=== PATIENT | female | born 1970 | race Caucasian/White ===

== ENCOUNTER 2023-12-20 13:02 | Emergency (ER) | payer BC, SELFPAY ==
[2023-12-20 13:06] VITALS: BP 165/96
--- NOTE | 2023-12-20 13:35 | ED.GENMED ---
History of Present Illness
<Rosy Green PA-C - Last Filed: 12/20/23 18:14>
General
Chief Complaint: Abdominal Symptoms
Source: patient
Exam Limitations: none
Time Seen by Provider: 12/20/23 13:29
Nursing documentation reviewed up to this point in time: agreed with
History of Present Illness
History of Present Illness:
Patient is a 53-year-old female presenting to the emergency department for evaluation of abdominal pain. Patient reports yesterday evening prior to bed feeling a general feeling of bloating. This was shortly followed by pain in her left lower
abdomen. This morning pain was persistent and worse with movement. At times last night felt the pain was so severe it was hard to get a deep breath. Patient did feel some urinary frequency this morning and associated dysuria. Patient denies any
associated fever, chills, nausea, vomiting, diarrhea, constipation, or hematuria. No history of prior abdominal surgeries.
Patient was seen in urgent care this morning for symptoms where they performed blood work and did a urinalysis. Patient was referred to the emergency department for further evaluation.
No history of kidney stones. She does however note a history of known uterine fibroids for which patient states pain seems very different.
Review of Systems
<Rosy Green PA-C - Last Filed: 12/20/23 18:14>
Review of Systems
Allergies reviewed?: Yes
All Other Systems: ROS reviewed and negative except as documented in HPI and ROS
Phy Exam
<Rosy Green PA-C - Last Filed: 12/20/23 18:14>
Physical Exam
Physical Exam:
Vitals: Hypertensive, otherwise vital signs stable. Afebrile
General: Patient is well appearing, no acute distress. Nontoxic-appearing
Skin: Warm and dry, no rashes or lesions
Head: Normocephalic, atraumatic
Eyes: Sclera nonicteric. EOMs intact. No nystagmus.
Throat: Protecting airway
Neck: Normal ROM, no cervical spine tenderness, no meningismus
Cardiac: Regular rate and rhythm, no murmurs.
Pulm: Normal respiratory effort, no wheezes, rales, rhonchi heard on exam.
Abdomen: Abdomen soft. Moderate abdominal tenderness in left lower quadrant without rebound tenderness or guarding. No CVA tenderness
Extremities: No evidence of cyanosis or edema. Great distal pulses
Neuro: Grossly intact
Psychiatric: Normal affect.
Course
<Rosy Green PA-C - Last Filed: 12/20/23 18:14>
Orders/Labs/Results
Orders:
Orders
12/20/23 14:00
CT Abd/pelvis W Iv Cont Urgent
Comment:
Reason For Exam: LLQ pain, bloating
0.9% Sodium Chloride 1000 ml [Nss] 1,000 ml IV BOLUS
Test Result ONCE
12/20/23 14:13
HCG, Urine Qualitative Screen Urgent
Date Specimen was Collected: 12/20/23
Time Specimen was Collected: 14:05
Urinalysis Reflex To Culture Urgent
Date Specimen was Collected: 12/20/23
Time Specimen was Collected: 14:05
Urine Microscopic Reflex Cult Urgent
12/20/23 16:50
Amoxicillin 875 mg/Clav 125 mg [Augmentin 875 mg/125 mg] 1 tablet PO NOW STA
Abnormal Lab Results
12/20/23
14:13
Leukocyte Esterase Rfl Trace A
(Negative)
Vital Signs
Initial and Last Documented VS:
Initial Vital Signs
Temp Pulse Resp BP Pulse Ox
98.5 F 93 16 165/96 100
12/20/23 13:06 12/20/23 13:06 12/20/23 13:06 12/20/23 13:06 12/20/23 13:06
Last Documented Vital Signs
Temp Pulse Resp BP Pulse Ox
98.5 F 96 16 146/78 94
12/20/23 13:06 12/20/23 17:00 12/20/23 17:00 12/20/23 17:00 12/20/23 17:00
<Beatrice Flynn MD - Last Filed: 12/20/23 16:51>
Orders/Labs/Results
Orders:
Orders
12/20/23 14:00
CT Abd/pelvis W Iv Cont Urgent
Comment:
Reason For Exam: LLQ pain, bloating
0.9% Sodium Chloride 1000 ml [Nss] 1,000 ml IV BOLUS
Test Result ONCE
12/20/23 14:13
HCG, Urine Qualitative Screen Urgent
Date Specimen was Collected: 12/20/23
Time Specimen was Collected: 14:05
Urinalysis Reflex To Culture Urgent
Date Specimen was Collected: 12/20/23
Time Specimen was Collected: 14:05
Urine Microscopic Reflex Cult Urgent
12/20/23 16:50
Amoxicillin 875 mg/Clav 125 mg [Augmentin 875 mg/125 mg] 1 tablet PO NOW STA
Abnormal Lab Results
12/20/23
14:13
Leukocyte Esterase Rfl Trace A
(Negative)
Vital Signs
Initial and Last Documented VS:
Initial Vital Signs
Temp Pulse Resp BP Pulse Ox
98.5 F 93 16 165/96 100
12/20/23 13:06 12/20/23 13:06 12/20/23 13:06 12/20/23 13:06 12/20/23 13:06
Last Documented Vital Signs
Temp Pulse Resp BP Pulse Ox
98.5 F 96 16 146/78 94
12/20/23 13:06 12/20/23 17:00 12/20/23 17:00 12/20/23 17:00 12/20/23 17:00
<Rosy Green PA-C - Last Filed: 12/20/23 18:14>
MDM/Problems Addressed
Differential Diagnosis Includes:
Not limited to: Diverticulitis, UTI, kidney stone, pyelonephritis, appendicitis, colitis, muscle strain, ovarian cyst,
MDM/Problems Addressed:
53-year-old female presenting with 1 day of constant left lower quadrant abdominal pain. Pain worse with movement. No associated fever, chills, diarrhea. No history of kidney stones. Patient seen in urgent care prior to emergency department
where basic labs and urinalysis performed. Did review labs from urgent care which show a very mild leukocytosis. Metabolic panel without any clinically significant abnormalities. Urine does not appear infected. Patient's vital signs are stable,
she is afebrile. Physical exam as above. Patient well-appearing, conversational and nontoxic. Abdomen is soft with moderate abdominal tenderness in left lower abdomen. No CVA tenderness. Differential broad at this time although considerations
include diverticulitis, appendicitis, kidney stone, ovarian cyst. Urinary infection less likely given urinalysis from the urgent care showed no signs of infection. Patient declines any analgesia at this time. Will give IV fluids and check CT scan
abdomen/pelvis with IV contrast. Will closely monitor and reassess
Chronic conditions affecting care:
N/A
Acute Exacerbation and/or Progression of Chronic Illness:
N/A
<Rosy Green PA-C - Last Filed: 12/20/23 18:14>
*Radiology
Radiology exam reviewed: preliminary read by ED provider and radiology read reviewed
*Pulse Oximetry
Patient hypoxic: no
*EKG
Interpreted by ED Provider?: NA
*Sheet Metal Duct Worker Supervisor Interpretation
Rate: Sheet Metal Duct Worker Supervisor- N/A
*Critical Care Note
Total Time (30-74mins, 75-104mins- exclusive of procedures): Not Applicable
Data Reviewed
Review of Other/Old Records Reveals: Labs (Labs performed at urgent care this morning along with urinalysis. Mild leukocytosis with white count of 11.2. No abnormalities on BMP. Urine with no signs of acute infection.)
<Rosy Green PA-C - Last Filed: 12/20/23 18:14>
Update Note
Update Note:
Update: Urine shows no signs of acute infection. CT report reviewed. Findings consistent with acute uncomplicated diverticulitis distal descending colon with no evidence of bowel perforation or abscess. Also noted large fibroid measuring 10.1 cm
for which patient is aware of and has frequent monitoring with [employer]. Patient is afebrile with very mild leukocytosis and very well-appearing. Given uncomplicated diverticulitis�will discharge with outpatient antibiotic. Patient given first dose
in emergency department today. Recommend clear liquid diet followed by few days of low fiber diet. Return precautions at length. Comfortable plan and eager for discharge home. Patient seen by attending physician. She will follow with PCP
ED Attending Note
<Rosy Green PA-C - Last Filed: 12/20/23 18:14>
-
Portions of this chart may have been created with voice recognition software.� Occasional wrong word or��sound alike� substitutions may have occurred due to the inherent limitations of voice recognition software.
<Beatrice Flynn MD - Last Filed: 12/20/23 16:51>
ED Attending Note
Patient seen and examined by attending physician: Yes
I performed the substantive portion of visit, reviewed & personally made and approve the management plan that is documented in note by myself or LOI.: Yes
ED Attending Note:
Patient appears well nontoxic. Has mild lower abdominal tenderness without rebound or guarding. No pulsatile mass. Heart sounds regular lungs are clear. There is no rebound or guarding or any signs of peritonitis. Patient very happy to go home
with antibiotics.
Discharge Plan
Departure
Patient Disposition: Home (Routine Discharge)
Date of Disposition: 12/20/23
Time of Disposition: 16:50
Patient with high blood pressure during this ER visit?: Yes
Condition: Good
Covid-19: Not Applicable
Discharge Problem:
Acute diverticulitis
Instructions: Clear Liquid Diet, Low Fiber Diet, BLOOD PRESSURE
Prescriptions:
New
amoxicillin-pot clavulanate 600-42.9 mg/5 mL suspension for reconstitution
7 ml PO BID 10 Days Qty: 140 0RF
Referrals:
Mariluz Alegria, [Family Provider] - Follow up in 5-7 days
Activity Restrictions/Additional Instructions:
Return to the emergency department with any fevers, chills, worsening abdominal pain, intractable pain, intractable nausea/vomiting, worsening current symptoms, or any other concern
-Your antibiotic has been sent to the pharmacy. You should take this twice a day for the next 10 days.
-As discussed�you should adhere to a clear liquid diet over the next 2 days and then advance to a low fiber diet for the next 3 to 4 days. You can take Tylenol as needed for any discomfort.
-Follow-up with your primary care for further evaluation/management
Monitor your symptoms closely and return to the emergency department any acute worsening/new symptoms
Interventions
Interventions:
*Risk Screen - Suicide Last Done: 12/20/23 13:03
*General Assessment Last Done: 12/20/23 13:06
*Neglect/Abuse Screening Last Done: 12/20/23 13:06
ED- Fall Risk Assessment Last Done: 12/20/23 13:50
*ED COVID-19 Vaccine History Last Done: 12/20/23 13:50
*Nursing Disposition Last Done: 12/20/23 17:22
OD-Pxzvem-Ifvuauqfxt Assessment Last Done: 12/20/23 13:50
Discharge Date and Time
Discharge Date/Time: 12/20/23 17:22
Print Language: KHMER
--- NOTE | 2023-12-20 13:45 | EDRN ---
Pt arrives from w/bloodwork (CBC and BMP as well as UA) completed. Copy of the results shown to Alba GODINEZ who signed up for pt and results scanned into pt's chart at this time.
[2023-12-20 13:50] VITALS: BMI 26.3
--- NOTE | 2023-12-20 13:54 | EDRN ---
Alba GODINEZ in room w/ pt at this time.
[2023-12-20 14:10] VITALS: BP 137/83
[2023-12-20] MEDS: NSS 1000 IV (14:11)
[2023-12-20 14:29] LABS: Urine Albumin Negative (Neg - Trace); Urine Bilirubin Negative (Negative); Urine Character Clear (Clear); Urine Color Yellow; Urine Glucose Negative (Negative); Urine Ketone Negative (Negative); Urine Leukocyte Trace (Negative); Urine Nitrite Negative (Negative); Urine Occult Blood Negative (Negative); Urine Urobilinogen Negative (Neg - 1+)
[2023-12-20 14:34] LABS: HCG, Urine Qualitative Screen Negative
[2023-12-20 14:39] LABS: Urine Red Blood Cell 0-2 /HPF (0-2); Urine White Cell 0-2 /HPF (0-5)
[2023-12-20 15:26] VITALS: BP 148/80
[2023-12-20 16:00] VITALS: BP 141/79
[2023-12-20 17:00] VITALS: BP 146/78
[2023-12-20] MEDS: AUGMENTIN 875 MG/125 MG 1 TABLET PO (17:13)
--- NOTE | 2023-12-20 17:34 | EDRN ---
Pt's pill crushed an placed in apple sauce after checking w/ pharmacist that it could be crushed. Pt received CD of CT scan.
== END 2023-12-20 17:22 | disposition home or self-care (01) ==
LOC: EMR 13:02
PROVIDERS: Physician Assistant; EMERGENCY PHYSICIAN Emergency Medicine; FAMILY PHYSICIAN Family Medicine
DX: K57.32 Diverticulitis of large intestine without perforation or abscess without bleeding (principal); R35.0 Frequency of micturition; R30.0 Dysuria; R03.0 Elevated blood-pressure reading, without diagnosis of hypertension
CPT/HCPCS: 99285; 96361; 96360; 74177; 81003; 81015; 81025; Q9967

== ENCOUNTER 2024-01-14 13:17 | Emergency (ER) | payer BC, SELFPAY ==
[2024-01-14 13:24] VITALS: BP 166/100
[2024-01-14 13:41] LABS: % Basophils 0.5 % (0-2); % Eosinophils 0.1 % (0-6); % Immature Granulocytes 0.3 % (0-0.5); % Lymphocytes 16.4 % (20.5-51.1); % Monocytes 4.3 % (1.7-9.3); % Neutrophils 78.4 % (42.2-75.2); Absolute Lymphocytes 1.3 10^3/uL (1.2-3.4); Absolute Monocytes 0.3 10^3/uL (0.1-0.6); Hematocrit 36.8 % (37.0-47.0); Hemoglobin 13.3 g/dL (12.0-16.0); Mean Corp Hgb Conc. 36.1 g/dL (33.0-37.0); Mean Corpuscular Hgb 30.2 pg (27.0-31.0); Mean Corpuscular Volume 83.6 fL (81.0-99.0); Mean Platelet Volume 11.2 fL (7.4-10.4); Nucleated Red Blood Cells % 0 %; Platelet Count 266 10^3/uL (130-400); Red Cell Dist. Width 13.7 % (11.5-14.5); White Blood Cell Count 7.6 10^3/uL (4.8-10.8)
[2024-01-14 13:56] LABS: ALT (SGPT) 16 U/L (0-35); AST (SGOT) 23 U/L (14-36); Alkaline Phosphatase 51 U/L (38-126); Blood Urea Nitrogen 10 mg/dl (7-17); Calcium 10.1 mg/dl (8.4-10.2); Carbon Dioxide 21 mmol/L (22-30); Chloride 108 mmol/L (98-107); Glucose 104 mg/dl (70-99); Lipase 99 U/L (23-300); Potassium 4.5 mmol/L (3.5-5.1); Sodium 143 mmol/L (135-145); Total Bilirubin 1.3 mg/dl (0.2-1.3); Total Protein 7.5 g/dl (6.3-8.2); eGFR > 60.00
[2024-01-14 13:59] LABS: HCG, Serum Qualitative Screen Negative
--- NOTE | 2024-01-14 14:09 | ED.GENMED ---
History of Present Illness
General
Chief Complaint: Abdominal Pain
Source: patient and records
Time Seen by Provider: 01/14/24 13:40
History of Present Illness
History of Present Illness:
53yoF with no significant past medical history presenting with her for evaluation of abdominal pain. Patient was seen in the ED on 12/20/23 and was diagnosed with diverticulitis. She was prescribed a 10 day course of Augmentin. Her pain
decreased but never fully went away after taking the antibiotics. She took milk of magnesia and prune juice yesterday for constipation and had several watery bowel movements overnight. She woke up today with worsening LLQ pain. She denies any
fevers, chills, vomiting, dysuria, hematochezia. She has an appt with GI scheduled at the end of the month. She had a colonoscopy about 7-8 years ago which was reportedly normal. +Family history of colon cancer. Only previous abdominal surgery is a
section.
Phy Exam
General Physical Exam
General Presentation: well appearing and no apparent distress
General age: appears stated age
General Skin: warm and dry
General Habitus: normal
General Mental: alert
ENT Exam
ENT Exam: normocephalic
Gastrointestinal Exam
Gastrointestinal Exam: soft, non distended and other (+Tenderness to suprapubic and LLQ regions. No guarding, rebound, or rigidity. )
[place] Coma Scale
Eye Opening: Spontaneous
Verbal Response: Oriented
Motor Response: Obeys Commands
GCS Total Score: 15
Skin Exam
Skin Exam: normal color and warm/dry
Psychiatric Exam
Psychiatric Exam: normal mood/affect
Course
Orders/Labs/Results
Orders:
Orders
01/14/24 13:28
Test Result ONCE
01/14/24 13:32
Complete Blood Count/With Diff Urgent
Comprehensive Metabolic Panel Urgent
HCG, Serum Qualitative Screen Urgent
Lipase Urgent
01/14/24 14:09
CT Abd/pelvis W Iv Cont Urgent
Comment:
Reason For Exam: LLQ pain
0.9% Sodium Chloride 1000 ml [Nss] 1,000 ml IV BOLUS
01/14/24 14:25
Urine Culture Reflexed from UA [Urinalysis Reflex To Culture] Urgent
Date Specimen was Collected: 01/14/24
Time Specimen was Collected: 14:24
Abnormal Lab Results
01/14/24 01/14/24
13:32 14:25
Hct 36.8 L %
(37.0-47.0)
MPV 11.2 H fL
(7.4-10.4)
Neutrophils % 78.4 H %
(42.2-75.2)
Lymphocytes % 16.4 L %
(20.5-51.1)
Chloride 108 H mmol/L
(98-107)
Carbon Dioxide 21 L mmol/L
(22-30)
Glucose 104 H mg/dl
(70-99)
Urine Ketones Trace A
(Negative)
01/14/24 13:32
01/14/24 13:32
Vital Signs
Initial and Last Documented VS:
Initial Vital Signs
Temp Pulse Resp BP Pulse Ox
98.1 F 110 16 166/100 100
01/14/24 13:24 01/14/24 13:24 01/14/24 13:24 01/14/24 13:24 01/14/24 13:24
Last Documented Vital Signs
Temp Pulse Resp BP Pulse Ox
98.1 F 87 16 144/74 100
01/14/24 13:24 01/14/24 15:19 01/14/24 15:19 01/14/24 14:50 01/14/24 15:19
MDM/Problems Addressed
Differential Diagnosis Includes:
53yoF here with LLQ pain. Seen in ED 1 month ago and diagnosed with diverticulitis. Prescribed Augmentin x 10 days. Pain improved but never went away. Pain now worsening. No f/c. She is afebrile and hemodynamically stable. She is well appearing in
no distress. No signs of peritonitis on abdominal exam. Differential diagnosis includes but is not limited to: diverticulitis, colitis, abscess, perforation
Initial ED plan: Check abdominal labs and CT abdomen. IV fluid bolus.
*Critical Care Note
Total Time (30-74mins, 75-104mins- exclusive of procedures): Not Applicable
Update Note
Update Note:
Labs unremarkable including normal white count. CT shows diverticulitis which looks improved from CT last month with decreased stranding/inflammation. No abscess or perforation present. No indication for hospitalization at this time and patient is
requesting discharge. She was prescribed a 10 day course of Cipro and Flagyl. Advised clear liquid diet until pain improves. She already has a GI appt scheduled for later this month. Strict ED return precautions discussed including fevers/chills.
She expressed understanding and is agreeable to plan. She was discharged in stable condition.
ED Attending Note
-
Portions of this chart may have been created with voice recognition software.� Occasional wrong word or��sound alike� substitutions may have occurred due to the inherent limitations of voice recognition software.
Discharge Plan
Departure
Patient Disposition: Home (Routine Discharge)
Date of Disposition: 01/14/24
Time of Disposition: 16:39
Patient with high blood pressure during this ER visit?: Yes
Discharge Problem:
Acute diverticulitis
Instructions: Clear Liquid Diet, Diverticulitis (DC)
Prescriptions:
New
ciprofloxacin HCl [Cipro] 500 mg tablet
500 mg PO BID Qty: 20 0RF
metronidazole 500 mg tablet
500 mg PO Q8H Qty: 30 0RF
No Action
amoxicillin-pot clavulanate 600-42.9 mg/5 mL suspension for reconstitution
7 ml PO BID 10 Days Qty: 140 0RF
Referrals:
Michelle Stanford MD [Active] -
Mariluz Alegria DO [Family Provider] -
Activity Restrictions/Additional Instructions:
Take antibiotics (Cipro and Flagyl) as prescribed. Eat a clear liquid diet until pain improves.
Please follow-up with gastroenterology and your family doctor. Return to the ER with any worsening symptoms, fevers, chills, or if you do not improve in 4 days.
Interventions
Interventions:
*Risk Screen - Suicide Last Done: 01/14/24 15:14
*General Assessment Last Done: 01/14/24 14:00
*Neglect/Abuse Screening Last Done: 01/14/24 15:14
ED- Fall Risk Assessment Last Done: 01/14/24 14:00
*ED COVID-19 Vaccine History Last Done: 01/14/24 15:14
*Nursing Disposition Last Done: 01/14/24 17:26
LR-Pzjgfy-Frlqyjadfv Assessment Last Done: 01/14/24 14:00
Discharge Date and Time
Discharge Date/Time: 01/14/24 17:27
Print Language: [id number]
[2024-01-14] MEDS: NSS 1000 IV (14:11)
[2024-01-14 14:35] LABS: Urine Albumin Negative (Neg - Trace); Urine Bilirubin Negative (Negative); Urine Character Clear (Clear); Urine Color Yellow; Urine Glucose Negative (Negative); Urine Ketone Trace (Negative); Urine Leukocyte Negative (Negative); Urine Nitrite Negative (Negative); Urine Occult Blood Negative (Negative); Urine Specific Gravity 1.015 (<1.030); Urine Urobilinogen Negative (Neg - 1+)
[2024-01-14 14:50] VITALS: BP 144/74
[2024-01-14 15:14] VITALS: BMI 26.1
== END 2024-01-14 17:27 | disposition home or self-care (01) ==
LOC: EMR 13:17
PROVIDERS: Physician Assistant; EMERGENCY PHYSICIAN Emergency Medicine; FAMILY PHYSICIAN Family Medicine
DX: K57.32 Diverticulitis of large intestine without perforation or abscess without bleeding (principal); R03.0 Elevated blood-pressure reading, without diagnosis of hypertension
CPT/HCPCS: 99284; 96360; 74177; 80053; 81003; 83690; 84703; 85025; Q9967